=== PATIENT | female | born 1990 | race Caucasian/White ===

== ENCOUNTER 2017-06-11 19:26 | Emergency (ER) | payer MEDICAID, OTHER ==
[~2017-06-11] VITALS: Ht 167.6 cm; Wt 57.6 kg
[~2017-06-11 19:26] MED LIST: DOCU-131 PO; IBUP-1222 PO; PNV91TAB3 PO
[2017-06-11 20:25] LABS: BLOOD UREA NITROGEN 14 mg/dL (7-18); HEMATOCRIT 45.7 % (34.6-47.8); HEMOGLOBIN 15.6 g/dL (11.7-16.4); WHITE BLOOD COUNT 9.6 x10^3/uL (3.4-10)
[2017-06-11 21:11] VITALS: BP 95/49
== END 2017-06-11 21:58 | disposition home or self-care (01) ==
LOC: ED 21:20
DX: I88.9 Nonspecific lymphadenitis, unspecified (principal); D17.9 Benign lipomatous neoplasm, unspecified
CPT/HCPCS: 36415; 76857; 80048; 81003; 82040; 85025; 99285